=== PATIENT | female | born 1975 | race Two or more races ===

== ENCOUNTER 2017-09-12 00:35 | Emergency (ER) | payer MEDICAID, OTHER ==
[~2017-09-12] VITALS: Ht 162.6 cm; Wt 113.4 kg
--- NOTE | 2017-09-12 00:50 | NUR ---
ADMITTED TO ER RM-3 AMBULATORY C/O HEADACHE. DR CELIS CAME & SEEN PT.
[2017-09-12] MEDS ORDERED: HYDROCODONE/APAP 5-325MG TABLET PO ONE (01:15)
[2017-09-12] MEDS ORDERED: HYDROCODONE/APAP 5-325MG TABLET ONE (01:17)
--- NOTE | 2017-09-12 01:17 | NUR ---
PT. TO XRAY FOR CT SCAN OF HEAD.
--- NOTE | 2017-09-12 01:21 | NUR ---
MEDICATED W/ NORCO 5-325MG PO FOR HEADACHE.
[2017-09-12 01:23] LABS: BASOPHILS # (AUTO) 0.1 K/uL (0.0-8.0); BASOPHILS % (AUTO) 0.8 % (0.0-2.0); EOSINOPHILS # (AUTO) 0.2 K/uL (0.0-0.7); EOSINOPHILS % (AUTO) 1.9 % (0.0-7.0); HEMATOCRIT 39.8 % (31.2-41.9); HEMOGLOBIN 13.7 g/dL (10.9-14.3); LYMPHOCYTES # (AUTO) 2.8 K/uL (20.0-40.0); LYMPHOCYTES % (AUTO) 25.8 % (20.5-51.5); MEAN CORPUSCULAR HGB CONC 34 g/dL (32.3-35.6); MEAN CORPUSCULAR VOLUME 87.2 fL (75.5-95.3); MONOCYTES # (AUTO) 1.2 K/uL (2.0-10.0); MONOCYTES % (AUTO) 10.8 % (0.0-11.0); NEUTROPHILS # (AUTO) 6.5 K/uL (1.8-8.9); NEUTROPHILS % (AUTO) 60.7 % (38.5-71.5); PLATELET COUNT (AUTO) 322 K/uL (179-408); RED BLOOD CELL COUNT(AUTO) 4.56 MIL/uL (3.63-4.92); WHITE BLOOD COUNT (AUTO) 10.8 K/uL (3.8-11.8)
[2017-09-12 01:31] LABS: BILIRUBIN,TOTAL 0.3 mg/dL (0.2-1.0); POTASSIUM 3.4 mmol/L (3.5-5.1); TOTAL PROTEIN, SERUM 7.1 g/dL (6.4-8.2)
--- NOTE | 2017-09-12 02:10 | NUR ---
DISCHARGE INSTRUCTIONS GIVEN & WAS UNDERSTOOD. DISCHARFGED AMBULATORY UNDER THE CARE OF .
[2017-09-12 02:32] VITALS: BP 130/78
== END 2017-09-12 02:15 | disposition home or self-care (01) ==
LOC: ER 00:38
DX: R20.2 Paresthesia of skin (principal); R51 Headache; I10 Essential (primary) hypertension; R60.9 Edema, unspecified; H11.31 Conjunctival hemorrhage, right eye
CPT/HCPCS: 36415; 70450; 80053; 85025; 99285; A4663

== ENCOUNTER 2017-10-09 13:40 | Emergency (ER) | payer OTHER ==
[~2017-10-09] VITALS: Ht 162.6 cm; Wt 127.0 kg
--- NOTE | 2017-10-09 13:55 | NUR ---
Dr Phan at the bedside for MSE.
[2017-10-09 14:25] LABS: *URINE HCG, QUAL NEGATIVE (NEGATIVE)
--- NOTE | 2017-10-09 14:45 | NUR ---
Patient discharged to home in stable conditon. Written and verbal after care instructions given. Patient verbalizes understanding of instructions.
== END 2017-10-09 14:45 | disposition home or self-care (01) ==
LOC: ER 13:40
DX: L25.9 Unspecified contact dermatitis, unspecified cause (principal); I10 Essential (primary) hypertension
CPT/HCPCS: 84703; A4663

== ENCOUNTER 2018-02-03 11:27 | Emergency (ER) | END 2018-02-03 12:26 | disposition home or self-care (01) | DX: F41.9 Anxiety disorder, unspecified (principal); G47.00 Insomnia, unspecified; I10 Essential (primary) hypertension; M19.90 Unspecified osteoarthritis, unspecified site; Z98.890 Other specified postprocedural states ==

== ENCOUNTER 2019-08-04 00:35 | Emergency (ER) | payer OTHER ==
[~2019-08-04] VITALS: Ht 162.6 cm; Wt 111.1 kg
--- NOTE | 2019-08-04 01:21 | NUR ---
PATIENT ARRIVED AT THE ER WITH C/O HEADACHE SINCE 10 AM. AAOX4. IN NO ACUTE DISTRESS.
--- NOTE | 2019-08-04 01:25 | NUR ---
Dr. Michel at bedside for MSE.
[2019-08-04] MEDS ORDERED: METOCLOPRAMIDE HCL 10 MG/2 ML VIAL IV ONE (01:45)
[2019-08-04] MEDS ORDERED: DEXAMETHASONE SOD PHOSPHATE 4 MG INJ IV ONE (01:45)
[2019-08-04] MEDS ORDERED: IV NS 1000 ML 1,000 ML IV ONE (01:45)
[2019-08-04] MEDS ORDERED: KETOROLAC TROMETHAMINE 30 MG INJ IVP ONE (01:45)
[2019-08-04] MEDS ORDERED: DEXAMETHASONE SOD PHOSPHATE 4 MG INJ ONE (01:48)
[2019-08-04] MEDS ORDERED: METOCLOPRAMIDE HCL 10 MG/2 ML VIAL ONE (01:49)
[2019-08-04] MEDS ORDERED: KETOROLAC TROMETHAMINE 30 MG INJ ONE (01:49)
--- NOTE | 2019-08-04 01:51 | NUR ---
PATIENT TO CT.
--- NOTE | 2019-08-04 02:03 | NUR ---
BACK FR CT
[2019-08-04 02:28] LABS: *URINE HCG, QUAL NEGATIVE (NEGATIVE)
--- NOTE | 2019-08-04 02:56 | NUR ---
CALLED [facility] SPOKE/KIT TO REGARDING CT RESULT.
--- NOTE | 2019-08-04 03:12 | NUR ---
Patient discharged to home in stable condition. Written and verbal after care instructions given. Patient verbalizes understanding of instructions. Stressed follow up or return to ER for worsening s/s. Pt ambulated out of the ER with steady gait. All belongings with pt.
[2019-08-04 03:15] VITALS: BP 126/80
== END 2019-08-04 03:12 | disposition home or self-care (01) ==
LOC: ER 00:39
DX: R51 Headache (principal); I10 Essential (primary) hypertension; Z82.49 Family history of ischemic heart disease and other diseases of the circulatory system; E66.9 Obesity, unspecified
CPT/HCPCS: 70450; 84703; 96361; 96374; 96375; 99284; J1100; J1885; J2765; A4663; J7030

== ENCOUNTER 2021-10-14 02:11 | Emergency (ER) | payer OTHER ==
[~2021-10-14] VITALS: Ht 162.6 cm; Wt 74.8 kg
[2021-10-14] MEDS ORDERED: TETRACAINE HCL 0.5% OPHT DROP 2 ML BOTTLE ONE (05:30)
[2021-10-14] MEDS ORDERED: FLUORESCEIN SODIUM 1 MG STRIP ONE (05:33)
[2021-10-14] MEDS ORDERED: OLOP2.5D12 EACHEYE (05:57)
--- NOTE | 2021-10-14 06:25 | NUR ---
Patient discharged to home in stable condition. Written and verbal after care instructions given. Patient verbalizes understanding of instructions. Stressed follow up or return to ER for worsening s/s.
[2021-10-14 06:26] VITALS: BP 125/82
== END 2021-10-14 06:27 | disposition home or self-care (01) ==
LOC: ER 02:20
DX: H10.13 Acute atopic conjunctivitis, bilateral (principal)
CPT/HCPCS: A4663

== ENCOUNTER 2023-08-25 08:47 | Emergency (ER) | payer OTHER ==
[~2023-08-25] VITALS: Ht 165.1 cm; Wt 72.6 kg
[~2023-08-25 08:47] MED LIST: OLOP2.5D12 EACHEYE
[2023-08-25] MEDS ORDERED: PRED20TA PO (09:15)
[2023-08-25] MEDS ORDERED: FAMO-132 PO (09:15)
[2023-08-25] MEDS ORDERED: methylPREDNISolone SOD SUCC 40 MG/ML VIAL ONE (09:20)
[2023-08-25] MEDS: methylPREDNISolone SOD SUCC 40 MG/ML VIAL IM ONE (09:20)
[2023-08-25 09:45] VITALS: BP 133/91; O2SAT 99
== END 2023-08-25 09:53 | disposition home or self-care (01) ==
LOC: ER 08:47
DX: L29.9 Pruritus, unspecified (principal); T78.2XXA Anaphylactic shock, unspecified, initial encounter; I10 Essential (primary) hypertension; E66.9 Obesity, unspecified; Z98.890 Other specified postprocedural states; Z68.26 Body mass index [BMI] 26.0-26.9, adult; Z79.52 Long term (current) use of systemic steroids; Y92.89 Other specified places as the place of occurrence of the external cause
CPT/HCPCS: A4606; A4663; J2919